=== PATIENT | female | born 1995 | race Caucasian/White ===

== ENCOUNTER → 2019-08-03 16:40 | Observation (INO) ==
[2019-08-03 13:55] LABS: Basophils % 0.3 %; Eosinophils # 0.1 K/mcL (0.0-0.6); Eosinophils % 1.2 %; Hemoglobin 13.5 g/dL (11.5-15.4); Immature Granulocytes % 0.4 % (0-4); Lymphocytes # 1.2 K/mcL (0.6-4.6); Lymphocytes % 16.4 %; Mean Corpuscular HGB Conc 34.6 g/dL (31.6-35.5); Mean Corpuscular Hemoglobin 30.1 pg (28.0-33.3); Mean Corpuscular Volume 86.9 fL (83.0-100.0); Mean Platelet Volume 10.9 fL (9.4-12.4); Monocytes # 0.6 K/mcL (0.0-1.3); Monocytes % 7.8 %; Neutrophils # 5.5 K/mcL (1.6-8.9); Platelet Count 185 K/mcL (140-400); Red Blood Count 4.49 M/mcL (3.82-4.97); Red Cell Distribution Width 13.1 % (11.5-14.5); Segmented Neutrophils % 73.9 %; White Blood Count 7.5 K/mcL (4.3-11.1)
[2019-08-03 14:06] LABS: Amphetamine Screen,Urine Negative ng/mL (Cutoff=1000); Barbiturate Screen,Urine Negative ng/mL (Cutoff=200); Benzodiazepines Screen,Urine Negative ng/mL (Cutoff=200); Cannabinoid Screen,Urine Positive ng/mL (Cutoff = 50); Cocaine Screen,Urine Negative ng/mL (Cutoff= 300); Opiate Screen,Urine Negative ng/mL (Cutoff=300); Phencyclidine Screen,Urine Negative ng/mL (Cutoff=25)
[2019-08-03 14:14] LABS: Albumin 3.3 g/dL (3.5-5.7); Albumin/Globulin Ratio 1.1 (1.1-2.2); Bilirubin,Direct 0.1 mg/dL (0.0-0.2); Bilirubin,Indirect 0.3 mg/dL (0.0-1.0); Bilirubin,Total 0.4 mg/dL (0.3-1.0); Total Protein 6.3 g/dL (6.4-8.9)
[2019-08-03 15:04] LABS: Hepatitis C Virus Antibody Nonreactive (Nonreactive)
[2019-08-03 15:08] LABS: Uric Acid 4.4 mg/dL (2.3-7.6)
[2019-08-03 16:18] LABS: Creatinine,Urine 34 mg/dL; Protein/Creatinine Ratio,Urine 0.21 mg/mg (0.00-0.20)
[~2019-08-03 16:40] MED LIST: Betamethasone Acet/SodPhos 30 MG/5 ML VIAL IM SCH; Oxytocin 20 units/ LR 1000 mL 20 UNIT/1,000 ML BAG IVC SCH
[2019-08-03 17:22] LABS: Hepatitis B Surface Antigen Nonreactive (Nonreactive)
[2019-08-03 17:51] LABS: Hepatitis B Core IgM Nonreactive (Nonreactive)
[2019-08-03 17:52] LABS: Hepatitis A Antibody IgM Nonreactive (Nonreactive)
== END | disposition home or self-care (01) ==
LOC: 1NENULAB
PROVIDERS: ADMIT Registered Nurse; ATTEND Registered Nurse

== ENCOUNTER 2019-08-11 06:00 | Inpatient (IN) ==
[2019-08-11] MEDS ORDERED: Naloxone 0.4 MG/ML INJ IVP PRN (06:26)
[2019-08-11] MEDS ORDERED: Ondansetron 4 MG/2 ML VIAL IVP PRN (06:26)
[2019-08-11] MEDS ORDERED: Metoclopramide 10 MG/2 ML VIAL IVP PRN (06:26)
[2019-08-11] MEDS ORDERED: *HR* Nalbuphine 10 MG/ML AMPUL IVP PRN (06:26)
[2019-08-11] MEDS ORDERED: Famotidine 20 MG/2 ML VIAL IVP PRN (06:26)
[2019-08-11] MEDS ORDERED: Ringers Solution, Lactated 1,000 ML IVC SCH (06:30)
[2019-08-11 06:57] LABS: Basophils % 0.3 %; Eosinophils # 0.1 K/mcL (0.0-0.6); Hematocrit 37.7 % (35.3-44.9); Hemoglobin 12.4 g/dL (11.5-15.4); Immature Granulocytes % 0.5 % (0-4); Lymphocytes # 1.6 K/mcL (0.6-4.6); Lymphocytes % 17.8 %; Mean Corpuscular HGB Conc 32.9 g/dL (31.6-35.5); Mean Corpuscular Hemoglobin 29.5 pg (28.0-33.3); Mean Corpuscular Volume 89.5 fL (83.0-100.0); Mean Platelet Volume 11.3 fL (9.4-12.4); Monocytes % 11.1 %; Neutrophils # 6.3 K/mcL (1.6-8.9); Platelet Count 201 K/mcL (140-400); Red Blood Count 4.21 M/mcL (3.82-4.97); Red Cell Distribution Width 12.8 % (11.5-14.5); Segmented Neutrophils % 69.3 %; White Blood Count 9.2 K/mcL (4.3-11.1)
[2019-08-11] MEDS ORDERED: miSOPROStoL 25 MCG TABLET VG PRN (07:15)
[2019-08-11 07:48] LABS: Amphetamine Screen,Urine Negative ng/mL (Cutoff=1000); Barbiturate Screen,Urine Negative ng/mL (Cutoff=200); Benzodiazepines Screen,Urine Negative ng/mL (Cutoff=200); Cannabinoid Screen,Urine Positive ng/mL (Cutoff = 50); Cocaine Screen,Urine Negative ng/mL (Cutoff= 300); Opiate Screen,Urine Negative ng/mL (Cutoff=300); Phencyclidine Screen,Urine Negative ng/mL (Cutoff=25)
[2019-08-11 12:48] LABS: INR 0.9
[2019-08-11 12:50] LABS: Activated Partial Thrombo Time 27.3 Seconds (26.0-36.0)
[2019-08-11 13:03] LABS: Albumin 3.6 g/dL (3.5-5.7); Albumin/Globulin Ratio 1.2 (1.1-2.2); Bilirubin,Direct 0.1 mg/dL (0.0-0.2); Bilirubin,Indirect 0.3 mg/dL (0.0-1.0); Bilirubin,Total 0.4 mg/dL (0.3-1.0); Globulin 3.1 g/dL (2.4-3.5); Total Protein 6.7 g/dL (6.4-8.9)
[2019-08-11] MEDS ORDERED: Oxytocin 20 units/ LR 1000 mL 20 UNIT/1,000 ML BAG IVC SCH (16:45)
[2019-08-11] MEDS: Epidural Premix (fent/bupiv) 110 ML EP SCH (20:33)
[2019-08-11] MEDS ORDERED: Acetaminophen 325 MG TABLET PO ONE (21:17)
[2019-08-12] MEDS: Epidural Premix (fent/bupiv) 110 ML EP SCH (03:02)
[2019-08-12] MEDS ORDERED: Acetaminophen 325 MG TABLET PO ONE (03:43)
[2019-08-12] MEDS ORDERED: Penicillin G Potassium 5,000,000 UNIT in 0.9 % Sodium Chloride Mini Bag 100 ML IVPB ONE (03:52)
[2019-08-12] MEDS ORDERED: Penicillin G Potassium 2,500,000 UNIT in 0.9 % Sodium Chloride 100 ML IVPB SCH (08:00)
[2019-08-12] MEDS ORDERED: Acetaminophen 325 MG TABLET PO PRN (08:59)
[2019-08-12] MEDS ORDERED: Oxytocin 20 units/ LR 1000 mL 20 UNIT/1,000 ML BAG IVC SCH (08:59)
[2019-08-12] MEDS: Ibuprofen 600 MG TABLET PO PRN ×2 (10:22→20:18)
[2019-08-12] MEDS: *HR* HYDROcodone/Acet 5/325 mg TABLET PO PRN (23:22)
[2019-08-13 05:41] LABS: Basophils % 0.2 %; Eosinophils # 0.1 K/mcL (0.0-0.6); Eosinophils % 0.6 %; Hematocrit 33.4 % (35.3-44.9); Hemoglobin 11.1 g/dL (11.5-15.4); Lymphocytes # 1.5 K/mcL (0.6-4.6); Lymphocytes % 8.4 %; Mean Corpuscular HGB Conc 33.2 g/dL (31.6-35.5); Mean Corpuscular Hemoglobin 29.9 pg (28.0-33.3); Mean Platelet Volume 11.3 fL (9.4-12.4); Monocytes # 1.2 K/mcL (0.0-1.3); Monocytes % 6.7 %; Neutrophils # 15.2 K/mcL (1.6-8.9); Platelet Count 192 K/mcL (140-400); Red Blood Count 3.71 M/mcL (3.82-4.97); Red Cell Distribution Width 13.6 % (11.5-14.5); Segmented Neutrophils % 83.1 %
[2019-08-13 05:42] LABS: White Blood Count 18.3 K/mcL (4.3-11.1)
[2019-08-13] MEDS: Ibuprofen 600 MG TABLET PO PRN (06:15)
[2019-08-13] MEDS: Prenatal Vit/FA 1 EACH TABLET PO SCH (09:23)
[2019-08-13] MEDS: *HR* HYDROcodone/Acet 5/325 mg TABLET PO PRN ×2 (13:48→19:45)
[2019-08-13] MEDS ORDERED: Rho Immune Globulin 1,500 UNIT SYRINGE IM ONE (14:41)
[2019-08-13] MEDS ORDERED: Lanolin 7 G OINT...G. TP PRN (19:57)
[2019-08-14] MEDS: Ibuprofen 600 MG TABLET PO PRN (03:34)
[2019-08-14 07:39] VITALS: BP 110/69
[2019-08-14] MEDS: Prenatal Vit/FA 1 EACH TABLET PO SCH (08:03)
[2019-08-14] MEDS: *HR* HYDROcodone/Acet 5/325 mg TABLET PO PRN ×2 (08:03→16:20)
[2019-08-14] MEDS ORDERED: Measles/Mumps/Rubella Vacc 0.5 ML VIAL SQ ONE ×2 (09:14→16:15)
== END 2019-08-14 16:30 | disposition home or self-care (01) | DRG 805 ==
LOC: 1NENULAB 06:15 → 1NENUOBS 08-12 19:18
PROVIDERS: ADMIT Obstetrics & Gynecology; ATTEND Obstetrics & Gynecology

== ENCOUNTER 2022-01-22 10:58 | Inpatient (IN) ==
[2022-01-22] MEDS ORDERED: Ondansetron 4 MG/2 ML VIAL IVP PRN (11:21)
[2022-01-22] MEDS ORDERED: Metoclopramide 10 MG/2 ML VIAL IVP PRN (11:21)
[2022-01-22] MEDS ORDERED: Naloxone 0.4 MG/ML INJ IVP PRN (11:21)
[2022-01-22] MEDS ORDERED: *HR* Nalbuphine 10 MG/ML AMPUL IV PRN (11:21)
[2022-01-22] MEDS ORDERED: Famotidine 20 MG/2 ML VIAL IVP PRN (11:21)
[2022-01-22] MEDS ORDERED: Lidocaine 1% 20 ML MDV ID PRN (11:21)
[2022-01-22] MEDS ORDERED: Azithromycin 500 MG in 0.9 % Sodium Chloride 250 ML IVPB PRN (11:21)
[2022-01-22] MEDS ORDERED: EPHEDrine 50 MG/ML VIAL IVP PRN (11:40)
[2022-01-22] MEDS ORDERED: Epidural Premix (fent/bupiv) 110 ML EP SCH (11:45)
[2022-01-22] MEDS ORDERED: miSOPROStoL 25 MCG TABLET VG PRN (12:09)
[2022-01-22 12:10] LABS: Basophils % 0.3 %; Eosinophils # 0.1 K/mcL (0.0-0.6); Hematocrit 34.1 % (35.3-44.9); Hemoglobin 12.4 g/dL (11.5-15.4); Immature Granulocytes % 1.2 % (0-4); Lymphocytes # 1.4 K/mcL (0.6-4.6); Lymphocytes % 13.9 %; Mean Corpuscular HGB Conc 36.4 g/dL (31.6-35.5); Mean Corpuscular Hemoglobin 32.8 pg (28.0-33.3); Mean Corpuscular Volume 90.2 fL (83.0-100.0); Mean Platelet Volume 10.8 fL (9.4-12.4); Monocytes # 0.8 K/mcL (0.0-1.3); Monocytes % 8.5 %; Neutrophils # 7.4 K/mcL (1.6-8.9); Platelet Count 198 K/mcL (140-400); Red Blood Count 3.78 M/mcL (3.82-4.97); Segmented Neutrophils % 75.1 %; White Blood Count 9.9 K/mcL (4.3-11.1)
[2022-01-22 12:28] LABS: Amphetamine Screen,Urine Negative ng/mL (Cutoff=1000); Barbiturate Screen,Urine Negative ng/mL (Cutoff=200); Benzodiazepines Screen,Urine Negative ng/mL (Cutoff=200); Cannabinoid Screen,Urine Positive ng/mL (Cutoff = 50); Cocaine Screen,Urine Negative ng/mL (Cutoff= 300); Opiate Screen,Urine Negative ng/mL (Cutoff=300); Phencyclidine Screen,Urine Negative ng/mL (Cutoff=25)
[2022-01-22 12:52] LABS: Influenza A PCR Negative (Negative); Influenza B PCR Negative (Negative); Resp. Syncytial Virus PCR Negative (Negative)
[2022-01-22 12:53] LABS: SARS-CoV-2 by PCR (In House) Negative (Negative)
[2022-01-22] MEDS ORDERED: Ringers Solution, Lactated 1,000 ML ONE ×2 (15:06→18:29)
[2022-01-22] MEDS: Oxytocin 30 UNIT/503 ML BAG IVC SCH (16:34)
[2022-01-23] MEDS: Oxytocin 30 UNIT/503 ML BAG IVC SCH (01:56)
[2022-01-23] MEDS ORDERED: *HR* OxyCODONE Immed Rel 5 MG TABLET PO PRN (02:47)
[2022-01-23] MEDS ORDERED: Ondansetron ODT 4 MG TAB.RAPDIS SL PRN (02:47)
[2022-01-23] MEDS ORDERED: Lanolin 7 G OINT...G. TP PRN (02:47)
[2022-01-23] MEDS ORDERED: Benzocaine/Menthol 56 GM AEROSOL SPRAY TP PRN (02:47)
[2022-01-23] MEDS ORDERED: Oxytocin 30 UNIT/503 ML BAG IVC SCH (02:47)
[2022-01-23] MEDS ORDERED: Rho Immune Globulin 1,500 UNIT SYRINGE IM PRN (02:47)
[2022-01-23] MEDS: Ibuprofen 600 MG TABLET PO SCH ×4 (03:16→21:47)
[2022-01-23] MEDS: Acetaminophen 325 MG TABLET PO SCH ×4 (03:17→21:47)
[2022-01-23 03:51] LABS: Basophils # 0.1 K/mcL (0.0-0.2); Basophils % 0.3 %; Eosinophils # 0.1 K/mcL (0.0-0.6); Eosinophils % 0.7 %; Hematocrit 35.5 % (35.3-44.9); Hemoglobin 12.1 g/dL (11.5-15.4); Immature Granulocytes % 0.7 % (0-4); Lymphocytes # 1.6 K/mcL (0.6-4.6); Lymphocytes % 8.3 %; Mean Corpuscular HGB Conc 34.1 g/dL (31.6-35.5); Mean Corpuscular Hemoglobin 30.6 pg (28.0-33.3); Mean Corpuscular Volume 89.6 fL (83.0-100.0); Mean Platelet Volume 10.8 fL (9.4-12.4); Monocytes # 1.1 K/mcL (0.0-1.3); Monocytes % 5.4 %; Neutrophils # 16.6 K/mcL (1.6-8.9); Platelet Count 198 K/mcL (140-400); Red Blood Count 3.96 M/mcL (3.82-4.97); Red Cell Distribution Width 12.9 % (11.5-14.5); Segmented Neutrophils % 84.6 %
[2022-01-23 03:52] LABS: White Blood Count 19.6 K/mcL (4.3-11.1)
[2022-01-23] MEDS ORDERED: Prenatal Vit/FA 1 EACH TABLET PO SCH (09:00)
[2022-01-23 15:41] VITALS: O2SAT 98
[2022-01-23 20:51] VITALS: BP 119/68; PULSE 89; TEMP 98.2
== END 2022-01-24 01:34 | disposition home or self-care (01) | DRG 805 ==
LOC: 1NENULAB 10:58 → 1NENUOBS 01-23 01:50
PROVIDERS: ADMIT Obstetrics & Gynecology; ATTEND Obstetrics & Gynecology